=== PATIENT | male | born 1990 | race Native Hawaiian/Other Pacific Islander ===

== ENCOUNTER 2021-04-22 23:29 | Emergency (ER) | payer OTHER ==
[2021-04-22] MEDS ORDERED: DIPH,PERTUS(ACELL)TETVAC-LF 0.5 ML VIAL IM ONE (23:35)
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
[2021-04-22 23:40] VITALS: RESP 16
[2021-04-22 23:48] LABS: Basophils # (A) 0.1 k/uL (0-0.2); Basophils % (A) 1 %; Eosinophils # (A) 0.1 k/uL (0-0.7); Eosinophils % (A) 1 %; HGB 16.9 gm/dL (13.0-17.5); Lymphocytes # (A) 2.9 k/uL (1.0-4.8); Lymphocytes % (A) 31 %; MCH 32.1 pg (25.0-35.0); MCHC 35.1 g/dL (31.0-37.0); MCV 91.3 fL (80.0-100.0); Mean Platelet Volume 6.9; Monocytes # (A) 0.6 k/uL (0-1.0); Monocytes % (A) 6 %; Neutrophils # (A) 5.6 k/uL (1.3-7.7); Neutrophils % (A) 59 %; Platelet Count 251 k/uL (150-450); RBC 5.26 m/uL (4.30-5.90); RDW 12.4 % (11.5-15.5); WBC 9.4 k/uL (3.8-10.6)
[2021-04-22 23:56] LABS: ALT 32 U/L (4-49); AST 32 U/L (17-59); African American GFR (CKD) >90 (>60 ml/min/1.73 sqM); Albumin 4.9 g/dL (3.5-5.0); Alkaline Phosphatase 94 U/L (38-126); Anion Gap 12 mmol/L; Blood Urea Nitrogen 14 mg/dL (9-20); Calcium 9.6 mg/dL (8.4-10.2); Carbon Dioxide 23 mmol/L (22-30); Chloride 105 mmol/L (98-107); Glucose 115 mg/dL (74-99); Non-African American GFR(CKD) 82 (>60 ml/min/1.73 sqM); Sodium 140 mmol/L (137-145); Total Bilirubin 0.9 mg/dL (0.2-1.3); Total Protein 7.5 g/dL (6.3-8.2)
[2021-04-23 00:04] LABS: Potassium 3.9 mmol/L (3.5-5.1)
[2021-04-23 00:05] LABS: Partial Thromboplastin Time 21.1 sec (22.0-30.0)
[2021-04-23 00:07] LABS: Alcohol 181 mg/dL
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
--- NOTE | 2021-04-23 00:31 | XR ---
EXAMINATION TYPE: XR knee limited RT DATE OF EXAM: 04/23/2021 COMPARISON: NONE HISTORY: Pain TECHNIQUE: 2 views FINDINGS: There is no evidence of fracture nor dislocation. Joint spaces are normal. There is no sign of joint effusion. IMPRESSION: Normal right knee exam.
[2021-04-23 01:07] LABS: Glucose,Whole Blood 125 mg/dL (75-99)
[2021-04-23] MEDS ORDERED: LIDOCAINE 1% INJ 10MG/ML (20 ML MDV) SQ ONE (01:48)
[2021-04-23 05:26] LABS: Glucose,Whole Blood 140 mg/dL (75-99)
[2021-04-23 07:06] VITALS: BP 120/72; PULSE 97; TEMP 97.2
== END 2021-04-23 07:06 | disposition home or self-care (01) ==
LOC: EC 23:29
DX: S06.0X1A Concussion with loss of consciousness of 30 minutes or less, initial encounter (principal); S01.511A Laceration without foreign body of lip, initial encounter; V89.2XXA Person injured in unspecified motor-vehicle accident, traffic, initial encounter; Y93.89 Activity, other specified; Z23 Encounter for immunization
CPT/HCPCS: 90471 ×2; 12011 ×2; 12013 ×2; 96372 ×2; 99284 ×2; 36415; 93005; 86900; 86901; 80053; 83605 ×2; 84484; 85025; 85610; 85730; 86850; 80320; 72170; 73560; 71045; 72125; 70450; 74177; 90715; J2001; Q9967

== ENCOUNTER 2022-08-14 12:09 | Day surgery (SDC) | payer OTHER ==
[~2022-08-14 12:09] MED LIST: SODIUM CHLORIDE 0.9% 1,000 ML IV SCH
[2022-08-14 13:15] VITALS: RESP 18; TEMP 98
--- NOTE | 2022-08-14 14:36 | P.EPPROC ---
- EP Procedure Note Electrophysiology Procedure Note: Diagnosis Recurrent syncope Twelve-lead EKG shows sinus rhythm normal AK narrow QRS early repolarization abnormality in the high lateral leads Inverted T waves in leads 3 and aVF Possible left atrial enlargement Tilt table test a protocol Baseline blood pressure 138/87 mmHg, Baseline heart rate 71 beats a minute Patient was tilted upright at -70 per protocol Within 2 minutes was a sudden drop in blood pressure and 17 is drop in heart rate Patient had a syncopal spell He was laid supine and his heart rate and blood pressure normalized immediately Impression Twelve-lead EKG as described above Orthostatic hypotension, immediate Systolic blood pressure dropped to less than 60 mmHg Heart rate dropped to around 45 beats a minute
[2022-08-14 14:55] VITALS: BP 142/86; PULSE 84
== END 2022-08-14 14:56 | disposition home or self-care (01) ==
LOC: CATHEP 12:09
PROVIDERS: ATTEND Internal Medicine Clinical Cardiac Electrophysiology
DX: R55 Syncope and collapse (principal); I95.1 Orthostatic hypotension
CPT/HCPCS: 93660